=== PATIENT | female | born 1965 | race Caucasian/White ===

== ENCOUNTER 2016-05-01 14:56 | Emergency (ER) | payer OTHER ==
[~2016-05-01] VITALS: Ht 170.2 cm; Wt 71.8 kg
[~2016-05-01 14:56] MED LIST: ADVAIR 100-501 EACH IH; ALBUTEROL SULF8.5 GM IH; AMBIEN10 MG PO; AMOXICILLIN875 MG; ANAPROX DS550 M1 PO; ASPIR-LOW81 MG PO; ATARAX,VISTARIL25 MG PO; ATIVAN1 MG PO; AUGMENTIN875 MG PO; BUSPAR10 MG PO; CLONAZEPAM1 MG PO; COUMADIN2.5 MG PO; COUMADIN5 MG PO; CYMBALTA60 MG PO; Cymbalta PO; DESYREL100 MG PO; DESYREL300 MG PO; DIAZEPAM5 MG PO; DILAUDID2 MG PO; DOCUSATE SODIU100 MG PO; FLEXERIL10 MG PO; KEFLEX500 MG PO; KLONOPIN1 M1 PO; KLONOPIN1 MG PO; KLONOPIN2 MG; LUNESTA1 MG; MELATONIN10 M1 PO; METHOCARBAMOL750 MG PO; MOTRIN800 MG PO; NAPROSYN500 MG PO; NOHOMEMEDS; NYQUIL D COLD295 ML PO; OXYCODONE HCL5 MG PO; PANTOPRAZOLE SO40 MG PO; PERCOCET 5/31 TABLET PO; PRILOSEC10 MG PO; PRILOSEC20 MG PO; SYMBICORT60 INHALAT IH; TRAZODONE HCL150 MG PO; TRAZODONE HCL50 MG PO; TYLENOL WITH C1 EACH PO; VALACYCLOVIR500 MG PO; VICODIN,LORT1 TABLET PO; XARELTO15 MG PO; XARELTO20 MG PO; ZITHROMAX500 MG PO; cymbalta; klonopin
[2016-05-01 15:35] LABS: HEMATOCRIT 43.7 % (36.0-46.0); MCH 31.9 PG (29.0-34.0); MCHC 34.6 G/DL (30.0-36.0); MCV 92.4 FL (83-99); MEAN PLAT.VOLUME 10.1 uM^3 (9.5-12.4); PLATELET COUNT 187 K/uL (156-360); RBC DIS.WIDTH-CV 12.4 % (11.8-14.6); RBC DIS.WIDTH-SD 40.9 % (39-53); RED BLOOD COUNT 4.73 M/uL (3.80-5.20); WHITE BLOOD COUNT 14.3 K/uL (4.1-10.2)
[2016-05-01 15:53] LABS: ADD MIUA? NO; BILIRUBIN NEGATIVE; BLOOD NEGATIVE; COLOR YELLOW ((YELLOW)); GLUCOSE (STRIP) NEGATIVE; KETONES NEGATIVE; LEUKOCYTES NEGATIVE; NITRITE NEGATIVE; PROTEIN (STRIP) NEGATIVE; UCUL ADDED? NO; UROBILINOGEN 0.2 MG/DL (0.2-1.0)
[2016-05-01 15:54] LABS: CHLORIDE 105 mEq/L (99-109); POTASSIUM 3.5 mEq/L (3.7-5.4); SODIUM 140 mEq/L (136-147)
[2016-05-01 15:56] LABS: GLUCOSE 139 mg/dL (70-99)
[2016-05-01 15:57] LABS: ANION GAP 13 MEQ/L (2-14)
[2016-05-01 15:58] LABS: TOTAL BILIRUBIN 0.9 mg/dL (0.0-1.0)
[2016-05-01 15:59] LABS: ALKALINE PHOSPHATASE 86 IU/L (3-129)
[2016-05-01 16:00] LABS: GFR ESTIMATE (CALCULATED) > 59 mL/min/
[2016-05-01 16:01] LABS: UREA NITROGEN (BUN) 6 mg/dL (9-23)
[2016-05-01 16:10] LABS: QUANTITATIVE HCG < 4.0 MIU/ML
[2016-05-01] MEDS ORDERED: PERCOCET 5/31 TABLET PO (18:50)
[2016-05-01] MEDS ORDERED: ZOFRAN ODT8 MG PO (18:50)
[2016-05-01] MEDS ORDERED: FLAGYL500 MG PO (18:50)
[2016-05-01] MEDS ORDERED: CIPRO500 MG PO (18:50)
[2016-05-01 20:02] VITALS: BP 108/73
== END 2016-05-01 20:24 | disposition home or self-care (01) ==
LOC: EME 14:56
DX: K57.32 Diverticulitis of large intestine without perforation or abscess without bleeding (principal); J45.909 Unspecified asthma, uncomplicated; J44.9 Chronic obstructive pulmonary disease, unspecified; K21.9 Gastro-esophageal reflux disease without esophagitis; Z86.718 Personal history of other venous thrombosis and embolism
CPT/HCPCS: 74176; 80053; 81003; 84702; 85027; 99281; 99284; J0744; J2270; J2405; S0030

== ENCOUNTER 2016-06-12 22:05 | Emergency (ER) | payer OTHER ==
[~2016-06-12] VITALS: Ht 170.2 cm; Wt 71.1 kg
[~2016-06-12 22:05] MED LIST changes: +CIPRO500 MG PO; +FLAGYL500 MG PO; +ZOFRAN ODT8 MG PO
[2016-06-13] MEDS ORDERED: INDOCIN50 MG PO (00:11)
[2016-06-13] MEDS ORDERED: NORCO 5/3251 TABLET PO (00:11)
[2016-06-13 00:27] VITALS: BP 114/73
== END 2016-06-13 00:38 | disposition home or self-care (01) ==
LOC: EME 22:05
DX: M72.2 Plantar fascial fibromatosis (principal); J44.9 Chronic obstructive pulmonary disease, unspecified; J45.909 Unspecified asthma, uncomplicated; Z86.718 Personal history of other venous thrombosis and embolism
CPT/HCPCS: 99281; 99283

== ENCOUNTER 2016-06-19 21:33 | Emergency (ER) | payer OTHER ==
[~2016-06-19] VITALS: Ht 170.2 cm; Wt 71.8 kg
[~2016-06-19 21:33] MED LIST changes: +INDOCIN50 MG PO; +NORCO 5/3251 TABLET PO
[2016-06-19 23:03] VITALS: BP 119/70
== END 2016-06-19 23:04 | disposition home or self-care (01) ==
LOC: EME → EDBD 21:33 → EME 23:04
DX: M77.32 Calcaneal spur, left foot (principal)
CPT/HCPCS: 72170; 73630; 99281; 99283